=== PATIENT | female | born 1975 | race Asian ===

== ENCOUNTER 2022-04-06 10:27 | Day surgery (SDC) | payer OTHER, SELFPAY ==
[2022-04-06] MEDS: LACTATED RINGERS 1000 ML 1,000 ML 100 ML IV (10:10)
[2022-04-06 10:46] VITALS: BP 93/67; PULSE 64; RESP 16; TEMP 36.7; O2SAT 99; BMI 23.6
[2022-04-06] MEDS: SODIUM CHLORIDE 0.9 % (FLUSH) 10 ML SYRINGE IVF (10:54)
[2022-04-06 11:06] LABS: Ur HCG Qualitative* Negative (Negative)
--- NOTE | 2022-04-06 11:36 | P.PCN_ITS ---
Procedure Note Time Seen by Provider: 11:36 Date Seen: 04/06/22 Date of procedure: 04/06/22 Will [facility] bill your pro fee for this procedure?: Yes Procedure: Preoperative diagnosis: 46 year-old nulligravid woman with * 1. Suspected endometrial polyps on sonohysterogram. * 2. Breakthrough bleeding on oral contraceptive pills * 3. Diagnosed by her fertility specialist, planning IVF Postoperative diagnosis: Same Procedure: Hysteroscopy, Dilation and Curettage using the Truclear incisor Anesthesia: Conscious sedation, paracervical block. Surgeon: Becka Tamayo MD Leaf Conditioner Helper: None Estimated blood loss: 3 mL IV Fluid: 500 mL Specimen: Endometrial curettings to pathology. Findings: Exam under anesthesia: Uterus: Retroverted position, less than less than 8 week sized, mobile, with no masses or nodularity palpable. Uterus sounded to 8 cm. No adnexal masses or nodularity palpable. On hysteroscopy: Multiple polypoid masses within the endometrium. After the dilation and curettage the endometrium appeared normal. Procedure: Amy Schaefer was taken to the operating operating room more conscious sedation was found to be adequate. The patient was placed on in the dorsal lithotomy position and an exam under anesthesia was performed with findings stated above. She was then prepped and draped in a normal sterile manner. A bivalve speculum was placed in the vagina. The cervix appears nulliparous. Otherwise no abnormalities. The paracervical block was placed using 0.5% Marcaine, 10 mL was injected at the 4 and 8 o'clock positions on the cervix. The posterior lip of the cervix was grasped with a long Allis clamp. The cervix dilated to Hegar 6. The uterus sounded to 8 cm. The Truclear hysteroscope was advanced into the uterus. A diagnostic hysteroscopy was performed with normal saline as the insufflation medium. Findings are stated above. The Truclear incisor was then advanced through the camera. The curettage was performed with the incisor over an approximately 5 minutes. The incisor was then removed. The endometrial cavity appeared normal. Saline deficit at the end of the procedure 140 mL. Total saline used 1130 mL. Nothing was needed for hemostasis. The hysteroscope, Allis clamp and speculum were removed from the vaginal canal. The patient tolerated the procedure well. Sponge, lap and instrument counts were correct x2 at the end of the procedure. The patient was taken to the recovery area in stable condition. A copy of the patient's discharge summary will by sent to her primary care provider: JENNY Farrell and her paedodontist: Arlin Bullard MD Surgeon: Becka Tamayo MD
--- NOTE | 2022-04-06 11:46 | W.ANESCHARGE ---
Anesthesia Charges Start Date/Time Anesthesia Start Date: 04/06/22 Anesthesia Start Time: 11:38 Stop Date/Time Anesthesia Stop Date: 04/06/22 Anesthesia Stop Time: 12:20 Summary Emergency: No
[2022-04-06] MEDS: BUPIVACAINE 0.5% 30 ML INJECTION (11:57)
[2022-04-06 12:16] VITALS: BP 96/58; PULSE 65; RESP 16; TEMP 36.5; O2SAT 98
--- NOTE | 2022-04-06 12:20 | W.ANESCHARGE ---
Anesthesia Charges Start Date/Time Anesthesia Start Date: 04/06/22 Anesthesia Start Time: 11:38 Stop Date/Time Anesthesia Stop Date: 04/06/22 Anesthesia Stop Time: 12:20 Summary Emergency: No
[2022-04-06 12:30] VITALS: BP 95/59; PULSE 66; RESP 16; O2SAT 98
[2022-04-06 12:45] VITALS: BP 93/60; PULSE 65; RESP 16; O2SAT 98
[2022-04-06 13:00] VITALS: BP 92/59; PULSE 65; RESP 16; O2SAT 98
== END 2022-04-06 13:03 | disposition home or self-care (01) ==
PROVIDERS: PCP Physician Assistant Medical; Visit Provider Obstetrics & Gynecology
PROC: 0UDB8ZZ Extraction of Endometrium, Via Natural or Artificial Opening Endoscopic (ICD-10-PCS; CPT 58558; principal; 2022-04-06 11:45)
DX: N93.8 Other specified abnormal uterine and vaginal bleeding (principal); N84.0 Polyp of corpus uteri
CPT/HCPCS: 58558; 00952; 36415; 81025; 86850; 86900; 86901; 88305; J2250; J2405; J2704; J3010; J3490; J7120

== ENCOUNTER 2022-06-13 12:49 | Emergency (ER) | payer OTHER, SELFPAY ==
[2022-06-13 12:55] VITALS: BP 108/71; PULSE 64; RESP 18; TEMP 36.1; O2SAT 99; BMI 21.5
--- NOTE | 2022-06-13 13:17 | ED_ITS ---
HPI - General Adult General Chief complaint: Vaginal Bleeding Stated complaint: vaginal bleeding Time Seen by Provider: 06/13/22 12:54 Source: patient Mode of arrival: ambulatory Limitations: no limitations History of Present Illness HPI narrative: 46-year-old female coming in today concerned about vaginal bleeding that started this morning. Patient has been dealing with infertility and had an embryo transfer done at the end of May. Everything has been going well until today when she had a what she describes, as a large amount of vaginal bleeding. The bleeding has now essentially stops and she says that she is now only spotting. She also states that she did have some tissue expelled. She is otherwise feeling fine. She is requesting today to know for sure whether not she had a miscarriage. We discussed doing an ultrasound and doing a hCG quantitative level which patient felt was appropriate. Related Data Home Medications Medication Instructions Recorded Confirmed desogestrel 0.15 mg-ethinyl 1 tab PO QDAY 03/10/22 04/19/22 estradiol 0.03 mg tablet (Apri) Allergies Allergy/AdvReac Type Severity Reaction Status Date / Time No Known Drug Allergies Allergy Verified 04/19/22 08:50 Review of Systems Status of ROS: Reports: 10 or more systems reviewed and unremarkable except as noted in History and below [facility] Medical History Endometrial polyp ?N84.0 - Polyp of corpus uteri (ICD-10) Infertility Surgical History H/O wisdom tooth extraction ?K08.409 - Partial loss of teeth, unspecified cause, unspecified class (ICD- 10) Family History Father High blood pressure Stroke Social History Narrative: Cis-gender, heterosexual woman Relationship status: . 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 Smoking Status: Never smoker How often do you have a drink containing alcohol: never AUDIT-C Alcohol total score: 0 Non-prescribed substance use: denies use Caffeine: No Are you using contraception or practicing any form of control: No Exam Narrative: Exam Narrative: Well-nourished well-developed patient in no acute distress. Alert and oriented. Answers questions appropriately. Mood and affect are appropriate. Thoughts are goal oriented and rational. No tangential or magical thinking noted. Patient speaks in full sentences without needing to catch her breath. HEENT: Normocephalic atraumatic. Pupils are equally round reactive to light. Extraocular muscles are intact. Conjunctivae are moist without any icterus noted. No pallor noted. Cardiovascular: Heart is regular rate and rhythm S1 and S2 are present without any murmurs. Lungs: Clear to auscultation bilaterally no wheezes rhonchi or rales are appreciated. Patient takes deep breaths without any discomfort. Skin: Well perfused without any obvious rashes. Const: Vital Signs, click to edit/add: Vital Signs - 24 hr 06/13/22 12:55 Temperature 97.0 F L Pulse Rate [Right Pulse Oximeter] 64 Respiratory Rate 18 Blood Pressure [Ri ght Upper Arm] 108/71 Pulse Oximetry 99 Oxygen Delivery Me thod Room Air Course Course Hospital Course: Labs entered the room to draw her blood and patient requested to speak to me again. I return to the room where she told me that she did not want have any testing done today and she wanted to wait until she saw her fertility physician this coming week. Vital Signs Vital signs: Initial Vital Signs Temperature 97.0 F L 06/13/22 12:55 Temperature Source Temporal Artery Scan 06/13/22 12:55 Pulse Rate 64 06/13/22 12:55 Respiratory Rate 18 06/13/22 12:55 Blood Pressure 108/71 06/13/22 12:55 Blood Pressure Mean 83 06/13/22 12:55 Blood Pressure Position Sitting 06/13/22 12:55 Pulse Oximetry 99 06/13/22 12:55 Oxygen Delivery Method Room Air 06/13/22 12:55 Vital Signs Temperature 97.0 F L 06/13/22 12:55 Pulse Rate 64 06/13/22 12:55 Respiratory Rate 18 06/13/22 12:55 Blood Pressure 108/71 06/13/22 12:55 Pulse Oximetry 99 06/13/22 12:55 Oxygen Delivery Method Room Air 06/13/22 12:55 Temperature 97.0 F L 06/13/22 12:55 Pulse Rate 64 06/13/22 12:55 Respiratory Rate 18 06/13/22 12:55 Blood Pressure 108/71 06/13/22 12:55 Pulse Oximetry 99 06/13/22 12:55 Oxygen Delivery Method Room Air 06/13/22 12:55 Medical Decision Making MDM Narrative Medical decision making narrative: 46-year-old female with vaginal bleeding. Refusing any treatment or testing today. Nothing further will be done, patient discharged home in stable condition. Discharge Plan Discharge Clinical Impression: Vaginal bleeding Patient Disposition: Home, Self-Care Condition: Stable Prescriptions: No Action desogestrel-ethinyl estradiol [Apri] 0.15-0.03 mg tablet 1 tab PO QDAY Follow Up/Referrals: Greta Dunlap PA-C [Primary Care Provider] - Stand Alone Forms: [facility] Info Instructions
--- NOTE | 2022-06-13 13:25 | ED.NURSE ---
Went into room to assess patient and explain plan of care. When blood draw was mentioned she questioned if these were necessary. MD was called in to speak with patient and answer more questions.
== END 2022-06-13 13:48 | disposition home or self-care (01) ==
PROVIDERS: Emergency Provider Family Medicine; PCP Physician Assistant Medical
DX: N93.9 Abnormal uterine and vaginal bleeding, unspecified (principal)
CPT/HCPCS: 84702; 85018; 86900; 86901; 99282

== ENCOUNTER 2024-06-17 17:19 | Inpatient (IN) | payer OTHER, SELFPAY ==
[2024-06-17] VITALS (55 sets, daily range): BP systolic 57–163; BP diastolic 35–118; PULSE 82–146; RESP 14–16; TEMP 36.5–36.8; O2SAT 92–99; BMI 27.8
[2024-06-17] MEDS: LACTATED RINGERS 1000 ML 1,000 ML 1200 ML IV ×3 (17:53→20:10)
[2024-06-17 18:03] LABS: Hemoglobin* 14.2 gm/dL (12.0-16.0); Immature Granulocytes Pct Auto 0.8 %; Lymphocytes Percent Auto 4.6 % (20-44); Mean Corpuscular HGB Conc 35 gm/dL (32-36); Mean Corpuscular Hemoglobin 33 pg (26-34); Mean Corpuscular Volume 96 fL (80-100); Monocytes Percent Auto 5.5 % (0.0-11.0); Neutrophils Percent Auto 89.1 % (42.0-72.0); Platelet Count* 118 K/uL (140-440); RDW Coefficient of Variation % 13.2 % (11.5-15.5); Red Blood Count 4.27 m/uL (4.00-5.20); White Blood Count* 24.92 K/uL (4.50-11.00)
[2024-06-17 18:05] LABS: Slide Review Reflex No
--- NOTE | 2024-06-17 18:10 | P.OBHP_ITS ---
OB - H&P: HPI Labor/Induction History of Present Illness Date Seen: 06/17/24 Chief Complaint: Olive is a 48 year old 2 para 0 at 40.2 weeks gestation by IVF established GILDA, who presents with her home electromechanical assembler desiring pain management for labor with prolonged second stage at home. Chief complaint: Maternity : 2 Para: 0 Date of last menstrual period: 09/09/23 (GILDA by IVF transfer, LMP unknown) Estimated date of delivery: 06/15/24 Gestational age based on last menstrual period: 40 Narrative: Olive Leiva is a 48 year old female at 40.2 by IVF transfer dates. She was attempting a home and is here now desiring pain management with an epidural. She has been 10 cm since 2001 on 06/16/2024 according to the home electromechanical assembler who accompanied her to the hospital. Additionally she may have had SROM on 06/14/24 as transfer notes indicate some leaking of clear fluid on this date. Labor charting indicated SROM at 1237 on 06/16/24 with continued leaking noted. Records were requested from [facility] in [place] as pt reports an initial visit with them. Records show one visit with them and limited lab work done per patient request. She has not had an anatomy scan, 1 hour glucose testing or GBS screening this . She declines GBS treatment today and has signed a refusal form. Labs done with [facility] include: Hep B: neg Hep C: neg Treponema palladium: negative Rubella: immune NIPT: low risk, female Hgb: 12.0 Plt: 171 Pt declines all blood work other than a CBC and Blood typing today. Home electromechanical assembler reports she has been pushing off and on since 2001 on 06/16/24. Reports they have tried multiple position changes, water therapy. Gopi circuit, and coached pushing. On admission she does desire an epidural, reports she feels exhausted and dozes off during exam. History of Present Dating criteria: other care: good care Ultrasounds: none Review of Systems Status of ROS: Reports: 10 or more systems reviewed and unremarkable except as noted in History and below Const: Denies: fever or chills Meds Home Medications and Allergies Home Medication Comments: PNV, Vit D3, Allergies Allergy/AdvReac Type Severity Reaction Status Date / Time No Known Drug Allergies Allergy Verified 06/17/24 17:36 OB - H&P: Exam Physical Exam: Vital signs: Pulse BP Pulse Ox 93 110/70 97 06/17/24 17:24 06/17/24 17:24 06/17/24 17:24 Narrative: VSS? General Appearance:? Alert,?appropriate appearance?for age. No acute distress? HEENT Exam:? Grossly?normal.? Neck / Thyroid Exam:? Supple? Chest/Respiratory Exam: Normal respiratory effort, symmetrical chest wall rise. Clear to auscultation.? Cardiovascular Exam: Regular rate and rhythm. S1, S2, no murmur, click, gallop, or rubs.? Gastrointestinal Exam: non-tender,? Gravid??? Musculoskeletal Exam: Back is straight and non-tender, full ROM of upper and lower extremities.? Skin: no rash or abnormalities? Neurologic Exam: Normal gait and speech, no tremor.? Psychiatric Exam: Alert and oriented, appropriate affect.??? OB - Results Labs Labs: Short CBC 06/17/24 Range/Units 17:57 WBC 24.92 H (4.50-11.00) K/uL Hgb 14.2 (12.0-16.0) gm/dL Hct 41.0 (33.0-51.0) % Plt Count 118 L (140-440) K/uL OB - Problem Based A/P Additional Plan (1) 40 weeks gestation of : Status: Acute (2) Pain during labor: Status: Acute (3) Prolonged rupture of membranes: Status: Acute Delivery/Labor/Induction Plan Plan: other (Establish pain management then assess and make plan for care)
[2024-06-17] MEDS: LIDOCAINE 2% (PF) 5 ML VIAL EPIDURAL (19:04)
[2024-06-17] MEDS: ROPIVACAINE 0.2% 100 ml 100 ML 10 MG EPIDURAL (19:04)
--- NOTE | 2024-06-17 19:19 | P.ANBPRC_ITS ---
[facility] Medical History Uterine polyp ?N84.0 - Polyp of corpus uteri (ICD-10) Social History What is your current living situation?: I presently have a place to live Problems where you live: no known problems In the past 12 months, utilities in danger of being shut off: no In past 12 months, lack of transportation kept you from medical appts, meetings, work, or getting things needed for daily living: no In the past 12 mos, have been you worried that your food would run out before you had money to buy more?: never true In the past 12 mos, the food you bought just didn't last and you didn't have money to buy more?: never true Smoking Status: Never smoker How often does anyone, including family, friends and others, physically hurt you : never How often does anyone, including family, friends and others, insult or talk down to you: never How often does anyone, including family, friends and others, threaten you with harm: never How often does anyone, including family, friends and others, scream or curse at you: never Meds Home Medications and Allergies Allergies Allergy/AdvReac Type Severity Reaction Status Date / Time No Known Drug Allergies Allergy Verified 06/17/24 17:36 Results Labs Labs: Laboratory Results - last 24 hr 06/17/24 17:57 WBC 24.92 H RBC 4.27 Hgb 14.2 Hct 41.0 MCV 96 MCH 33 MCHC 35 RDW Coeff of Quentin 13.2 Plt Count 118 L Neut % (Auto) 89.1 H Lymph % (Auto) 4.6 L [place] % (Auto) 5.5 Eos % (Auto) 0.0 Baso % (Auto) 0.0 Neut # (Auto) 22.20 H Lymph # (Auto) 1.10 [place] # (Auto) 1.40 H Eos # (Auto) 0.00 Baso # (Auto) 0.00 Abs Immat Gran (auto) 0.20 Imm/Tot Granulo (auto) 0.8 Blood Type B Positive Antibody Screen NEGATIVE Vital Signs Vital Signs: Last Vital Signs Pulse 99 06/17/24 19:18 BP 111/65 06/17/24 19:18 Pulse Ox 96 04/13/25 19:15 Weight: 66.678 kg Height: 154.94 cm Anesthesia Procedures Epidural Insertion Patient Location: OB Start Time: 18:40 Stop Time: 19:40 Start Date: 06/17/24 Stop Date: 06/17/24 Reason for Block: procedure for pain Patient Position: sitting Performed By: Soraida Loera Preanesthetic Checklist: IV checked, risks and benefits discussed, monitors and equipment checked, pre-op evaluation, timeout performed and anesthesia consent Prep: chlorhexidine gluconate Monitoring: blood pressure monitoring, continuous pulse oximetry and heart rate Approach: midline Vertebral Space: lumbar (1-5) Epidural Technique: ALEXA saline Needle Type: Tuohy needle Injection Technique: continuous catheter (continuous catheter) Needle gauge: 17 Needle Length (cm): 10 cm Needle Insertion Depth (cm): 7 Catheter Gauge: 19 Catheter Type: multi-orifice Catheter at skin depth (cm): 15 Test Dose Result: negative and lidocaine 1.5% with epinephrine 1 to 200,000
[2024-06-17] MEDS: PHENYLEPHRINE 100 MCG/ML SYRINGE IVP ×3 (19:22→19:25)
[2024-06-17] MEDS: ePHEDrine sulfate 5 MG/ML inj 10 MG IVP (19:23)
[2024-06-17] MEDS: fentaNYL 100 MCG/2 ML inj EPIDURAL (19:44)
[2024-06-17] MEDS: OXYTOCIN 30 unit/500 ML in NS 30 UNIT/500 ML BAG IVPB (19:47)
--- NOTE | 2024-06-17 21:13 | P.OBPN_ITS ---
<Statement entered by Kaylynn Jorge CNM - 06/17/24 21:56> This documentation has been reviewed and approved. I, *Kaylynn Jorge APRN, [place], was present for visit and have reviewed and agree with documentation by the Certified Nurse Midwifery Student.? Subjective Date Seen: 06/17/24 Narrative: In to assess patient after epidural was set up and she was feeling relief. Discussed options for either to continue with attempt at vaginal delivery, or progress to C section. Reviewed the risks of rupture greater than 24 hours and attempt at home of second stage did not show progress, recommendation would be for C section. Patient declined C section and wanted information on other options. reviewed what continuing with vaginal delivery would entail. Educated on use of oxytocin to help contraction pattern and strength to be more efficient. Reviewed options of breast pump and nipple stimulation, although did not advise that at this point. Patient agrees to oxytocin and continuing into second stage. Began second stage with slight left tilt, also left knee up with right leg down, right left up with left leg up, closed knee pushing, hands and knees and left sided pushing. [place] patient was making good pushing efforts, although infant head present asynclitic, ROP, and pushing and positioning efforts are not allowing fetus to advance or make progress. Discussed with patient that options have been exhausted and the best plan for a safe delivery would be a C section. Patient is in agreement. OB to be consulted. Objective Exam: NEURO: alert, oriented, speech normal HEENT: Intact RESPIRATORY: Regular rate rhythm,negative for cough CARDIO: Intermittent tachycardia, extremities perfusing well ABDOMEN: gravid, slim CERVICAL CHECK: 10/100/0 FHR: 140, category I CONTRACTIONS: 4-8 min apart, moderate to strong Vital Signs: Last Vital Signs Temp 98.3 F 06/17/24 19:15 Pulse 106 H 06/17/24 21:10 Resp 16 06/17/24 18:32 BP 116/69 06/17/24 21:10 Pulse Ox 97 06/17/24 20:00 Pelvic Exam Dilation (cm): 10 Effacement (%): 100 Station: 0 Comments: ROP, asynclitic. Contractions Pitocin Rate (mU/min): 4 Assessment Assessment: active labor Station: 0 Amniotic Membrane Status: SROM Status: Category l Heart Rate Baseline: 140 Special Procedure Technologist Variability: Moderate (6-25) Monitor Accelerations: Present Monitor Decelerations: None Plan Plan: 48 yo @ 40 &2 active labor, pushing without progress, FHR remained category I, unknown GBS, patient declines treatment problems; IVF, limited testing, declined US, 1 hour GTT, GBS, HIV testing, had genetic testing done, prolonged ROM and prolonged second stage. Plan: Consulted with OB for C section, patient in agreement. Dr Marte updated
--- NOTE | 2024-06-17 21:53 | PM.OBCN1 ---
OB - CN: HPI Date of Consult Time Seen by Provider: 21:30 Date Seen: 06/17/24 Consult date: 06/17/24 Requesting Physician: Kaylynn Jorge CNM Primary Care Provider: Not a Local Provider Consult Narrative Narrative: The patient is a 48 year old G 2 P 0 at 40w2d gestation that was admitted to the Center on 06/17/24 to establish care. Intrapartum course complicated by prolonged 2nd stage of labor, where she has been reportedly complete and pushing intermittently since 1999 yesterday. is complicated by IVF gestation, limited care. She did have a confirmation of ultrasound in 1st OB visit with Jessica, after that time completed all of her care with her home equipment service technician. Limited records are available, please see Kaylynn Jorge's ([place]) note for complete details. Notably, patient did not have an anatomy ultrasound, gestational diabetes screening or GBS testing. Infectious testing at new OB was negative, though HIV status has never been checked. Patient notes onset of spontaneous labor yesterday morning. Her equipment service technician notes she presented to home about 9:00 a.m., they suspected SROM at about 1230. She did note some leaking as early as 06/14, but her equipment service technician notes it was nitrazine and ferning negative at that time. Cervical exam was performed at 1999 on 06/16, at which time the patient was found to be complete. She pushed intermittently thereafter. Presented to our facility at about 1800 requesting epidural and transfer of care. She received an epidural, where cervical exam was performed and she was confirmed to be complete and 0 station. Pitocin augmentation was initiated, but ultimately patient failed to make descent with another hour expulsive efforts. I was consulted by Kaylynn Jorge CNM at 2108 and presented to the bedside. I explained my recommendation is to proceed with primary delivery and proceed as indicated immediately. Explained that ACOG defines a prolonged 2nd stage of labor as greater than 3 hours in nulliparous patients. Beyond this, I counseled her that there is about a 4 fold increased risk of hemorrhage. I explained it is challenging to accurately predict her true risk, given the very prolonged nature of her 2nd stage is outside of that which would be anticipated to be in the previously mentioned literature. Additionally counseled her about the risk of chorioamnionitis and endometritis in the setting of a prolonged labor/2nd stage. As such, I strongly feel it is safer from both the maternal and perspective to proceed with primary . Explained she has exhausted all other alternatives. Counseled her on her significantly increased was hemorrhage, where I reviewed that I would recommend delayed cord clamping for only 30 seconds, active management of the 3rd stage with delivery of the placenta and IV Pitocin. Recommend empiric use of 1 g IV TXA help prevent PPH. Discussed uterotonics that could be utilized to assist with uterine atony, as well as compressive devices (Jennifer, Bakri) or surgical interventions such as B-[place], [place] sutures or peripartum hysterectomy as a life saving measure. Patient is previously typed and screen, recommend we cross match her for 2 units. Patient did provide verbal consent for transfusion of blood if medically indicated. She initially inquired where the blood come from, where I explained this is via the [place] and is screen for communicable disease (HIV, hepatitis, syphilis, etc.). Patient asked if it is screen for COVID status, which I explained it is not screened for COVID-19 antibody or virus. After counseling, patient does again provided verbal consent to transfusion if required. With regard infection, recommend we proceed with IV Ancef and azithromycin. Discussed risk of damage to surrounding structures including uterus, tubes, ovaries, bowel, bladder, blood vessels, baby. I further explained the risk of a deeply impacted head which could lead to difficulty with extraction, hypoxia, injury or extension of the hysterotomy. Finally, I did ask that she allow us to screen her for HIV as this has not been previously completed and is relevant to the surgical team in the event of a needlestick injury. She provides verbal consent, where HIV will be run on her previously collected specimen. After comprehensive discussion, patient read consent form and had the opportunity ask questions. Written consent for primary delivery and proceed as indicated was obtained. She did request a written copy. She requested her placenta be provided to her home equipment service technician. I explained that I would typically recommend we send this for pathologic evaluation in the setting of an unscheduled , IVF , abnormal labor course. Alternatively, I requested to visually inspect the placenta and send a small portion of the placenta itself, membranes and umbilical cord. Patient declined, she would prefer to have her placenta sent with her equipment service technician intact. Explained we will honor her wishes. Plan to complete pelvic exam in the operating room to de-station head. Kaylynn Jorge CNM will be present to aid as hand from below in the event of deeply impacted head. Active type and screen on file, currently crossmatching 2 units packed red blood cells. Plan perioperative Ancef and azithromycin. Pediatrics provider to attend delivery in the setting of unscheduled and limited care (no anatomy US). History History 2 Elective abortions Para 0 Spontaneous abortions Hx # Term Pregnancies Ectopic pregnancies Hx # Pregnancies Multiple births Number of Living Children 0 Past Pregnancies Del. Date GA/Weeks Outcome Route wt Inf Gender Labor Lgth Anesthesia Location Provider Compli 03/07/22 spontaneous Labs GBS status: unknown OB Labs: Lab Assessment Start: 06/17/24 17:17 Freq: ONCE Status: Complete Protocol: PC.OBGBS Activity Type Activity Date Activity User E-sign Co-sign Detail Recorded Client Recorded Date Recorded By Document 06/17/24 17:17 [place] No Response 06/17/24 20:04 [place] 06/17/24 17:17 Lab Assessment GBS Status unknown GBS Additional Criteria ROM Greater Than 18 Hours Is Patient Allergic to Penicillin? No Treatment Required OK Maternal Blood Type B Maternal RH Factor Positive Evaluate Maternal Rubella Immune Status Immune Hepatitis B Surface Antigen Negative Maternal HIV Status Unknown Maternal Syphillis (RPR) Status Negative [facility] Medical History Uterine polyp ?N84.0 - Polyp of corpus uteri (ICD-10) Social History What is your current living situation?: I presently have a place to live Problems where you live: no known problems In the past 12 months, utilities in danger of being shut off: no In past 12 months, lack of transportation kept you from medical appts, meetings, work, or getting things needed for daily living: no In the past 12 mos, have been you worried that your food would run out before you had money to buy more?: never true In the past 12 mos, the food you bought just didn't last and you didn't have money to buy more?: never true Smoking Status: Never smoker How often does anyone, including family, friends and others, physically hurt you: never How often does anyone, including family, friends and others, insult or talk down to you: never How often does anyone, including family, friends and others, threaten you with harm: never How often does anyone, including family, friends and others, scream or curse at you: never Meds Home Medications and Allergies Home Medications ?Medication ?Instructions ?Recorded ?Confirmed ?Type vit no.95-ferrous 1 tab PO DAILY 06/17/24 06/17/24 History fumarate 28 mg-folic acid 800 mcg tablet () Allergies Allergy/AdvReac Type Severity Reaction Status Date / Time No Known Drug Allergies Allergy Verified 06/17/24 17:36 OB - H&P: Exam Physical Exam: Vital signs: Temp Pulse Resp BP Pulse Ox 98.3 F 115 H 16 98/53 L 97 06/17/24 19:15 06/17/24 21:38 06/17/24 18:32 06/17/24 21:38 06/17/24 20:00 OB - Results Labs Labs: Short CBC 06/17/24 Range/Units 17:57 WBC 24.92 H (4.50-11.00) K/uL Hgb 14.2 (12.0-16.0) gm/dL Hct 41.0 (33.0-51.0) % Plt Count 118 L (140-440) K/uL OB - CN: A/P Assessment and Plan (1) 40 weeks gestation of : Status: Acute (2) Pain during labor: Status: Acute (3) Prolonged rupture of membranes: Status: Acute (4) Advanced maternal age (AMA), 40 years or greater: Status: Acute
[2024-06-17] MEDS: AZITHROMYCIN 500 MG in 0.9 % SODIUM CHLORIDE 250 ml 250 ML 255 MG IVPB (22:02)
[2024-06-17] MEDS: CEFAZOLIN 1 GM inj 2 GM IVP (22:18)
--- NOTE | 2024-06-17 22:40 | SUR.OPER ---
PATIENT BROUGHT TO OR #5 PER CART. Patient positioned supine on OR #5 bed. Final approval of positioning by surgeon. PLACENTA IS NOT SENT TO PATHOLOGY PER PATIENT REQUEST.
[2024-06-17] MEDS: KETOROLAC 30 MG/ML inj IVP (23:08)
--- NOTE | 2024-06-17 23:21 | P.OBPRC_ITS ---
Procedure Time Seen by Provider: 23:21 Date of procedure: 06/17/24 Pre-op diagnosis: Arrest of descent, prolonged second stage of labor (24 hours), prolonged labor course, AMA, IVF, limited care Post-op diagnosis: same Procedure Done: Global Will [facility] bill your pro fee for this procedure?: Yes Blood Loss Measurement Type: QBL (344) Bakri Used: No IV fluids (mL): 1,000 Urine Output (mL): 200 Urine Output Comment: [place] color noted pre-op with placement of nelson, unchanged at completion of case Surgeon: Jersey Marte MD Anesthesia Type: Epidural Findings: Liveborn female Unremarkable uterus, fallopian tubes and ovaries Procedure Name: Primary delivery Procedure Description: Patient was taken to the operating room with IV running. She received cefazolin and azithromycin in preoperative prophylaxis. Epidural anesthesia was previously administered and bolused. Nelson catheter was previously inserted, return of hanccok colored urine noted. She was prepped and draped in the usual sterile fashion. Anesthesia was tested and found to be adequate. A low-transverse skin incision was made with a scalpel and carried through to the underlying layer of fascia with the scalpel. The subcutaneous fat was dissected off the underlying fascia with Bovie and blunt dissection. The fascia was nicked in the midline with a scalpel, and this incision was extended laterally with scissors. The rectus muscles were in the midline. Peritoneum was identified and entered bluntly. Bovie was used to widen this opening laterally. Joseph O retractor was inserted and tightened down, providing excellent visualization of the lower uterine segment. The bladder reflection was advanced along the lower uterine segment. A bladder flap was created with a combination of sharp and blunt dissection. Low-transverse uterine incision was made with a scalpel. Incision was widened bluntly. Foster and somewhat opaque amniotic fluid noted. The infant's head was grasped through the hysterotomy in MAGALI position with asynclitism and elevated to the hysterotomy. The shoulders were broad and did not immediately deliver with fundal pressure, where the right extremity was swept across the chest and over the face atraumatically to facilitate delivery. The remainder of the body then delivered without incident with the help of fundal pressure. No nuchal cord was noted. Cord was clamped and cut after 30 seconds. Infant was handed off to attending nurses and Pediatrics provider. The placenta was delivered with gentle traction on the cord. The uterus was cleaned of all clots and debris with the dry lap pad x2. IV pitocin (40U in LR) and 1g IV TXA was administered as prophylaxis given her prolonged second stage. The uterus was repaired in situ due to large size. The hysterotomy was reapproximated with 0 Vicryl in a running, locked fashion. Second layer of the same suture was used in imbricating fashion to obtain hemostasis. Excellent uterine tone was noted throughout. An area of ongoing oozing was noted at the center of the hysterotomy, reinforced with a [id number] suture with 0 vicryl. Excellent hemostasis noted. The adnexa were examined and noted to be normal in appearance. The cul-de-sac and gutters were cleansed with dampened laparotomy sponge, removing any further clots and debris. The Joseph O retractor was removed. The hysterotomy was reexamined and found to be hemostatic. The rectus muscles were examined and found to be hemostatic. The fascia was reapproximated with 0 Vicryl in a running fashion. Subcutaneous fat was irrigated and Bovie used on oozing vessels. The subcutaneous fat was less than 2cm and did not require closure. The skin was closed with a subcuticular stitch of 3-0 monocryl. Surgical glue was applied above this. Patient tolerated procedure well was taken to recovery area in stable condition. Surgical debrief was completed. Placenta was inspected, noted to be intact on visual inspection. Scattered areas of calcification seen. Central cord insertion, three-vessel cord. Membranes were somewhat tanned stained. Placenta was provided to patient at her request, declined surgical pathology. details: - Liveborn female fetus - weight: pending at time of documentation - APGARs were 8 and 9 at 1 and 5 minutes respectively Complications: None Pathology: specimen obtained, sent to pathology [place] Infant total score - 1 minute: 8 total score - 5 minute: 9
--- NOTE | 2024-06-17 23:42 | P.ANES_ITS ---
Anesthesia Charges Start Date/Time Anesthesia Start Date: 06/17/24 Anesthesia Start Time: 22:07 Stop Date/Time Anesthesia Stop Date: 06/17/24 Anesthesia Stop Time: 23:26 Coding CPT Codes CPT Codes: ANES/ANALG CS DELIVER ADD-ON - 59875 ([id number]) P3 - PATIENT W/SEVERE SYS DISEASE, QZ - DIRECTOR ADULT SVC W/O TITLE CLOSER BY
--- NOTE | 2024-06-17 23:42 | W.ANESCHARGE ---
Anesthesia Charges Start Date/Time Anesthesia Start Date: 06/17/24 Anesthesia Start Time: 22:07 Stop Date/Time Anesthesia Stop Date: 06/17/24 Anesthesia Stop Time: 23:26 Coding CPT Codes CPT Codes: ANES/ANALG CS DELIVER ADD-ON - 45413 ([id number]) P3 - PATIENT W/SEVERE SYS DISEASE, QZ - SKIP PITMAN SVC W/O MACHINE STEAK TENDERIZER BY
--- NOTE | 2024-06-17 23:43 | P.NB_ITS ---
Nerve Block Nerve Block Time Seen by Provider: 23:10 Date Seen: 06/17/24 Type of block requested by surgeon for post-operative analgesia: TAP Side: bilateral Time out performed: Yes Verification of patient name: Yes Verification of date of : Yes Name of person performing procedure: CORAZON Loera Continuous monitoring Was continuous monitoring of O2 sat, B/P, alarm security or surveillance monitor, recorded every 15 minutes?: Yes Procedure Checklist: sterile prep, needles and gloves Ultrasound guided. Images saved: Yes Medications given in 5ml increments after negative aspiration: Marcaine %: 0.25 mL: 30 Needle gauge: 20 and Exparel mL: 10 Needle gauge: 20 Patient tolerated procedure well: Yes Block Charges Block Charge (with Pro Fee): TAP Bilateral Use of Ultrasound Machine for Block: Yes- US Guidance/pain block
[2024-06-18] VITALS (12 sets, daily range): BP systolic 87–101; BP diastolic 50–70; PULSE 74–92; RESP 12–16; TEMP 36.3–36.7; O2SAT 92–97
[2024-06-18] MEDS: LACTATED RINGERS 1000 ML 1,000 ML 1200 ML IV (00:06)
[2024-06-18 01:19] LABS: HIV 1/2/P24 Combo Screen* Negative (Negative)
[2024-06-18 04:04] LABS: Basophils Percent Auto 0.1 % (0.0-3.0); Hematocrit 32.9 % (33.0-51.0); Hemoglobin* 11.1 gm/dL (12.0-16.0); Immature Granulocytes Pct Auto 0.2 %; Lymphocytes Percent Auto 6.4 % (20-44); Mean Corpuscular HGB Conc 34 gm/dL (32-36); Mean Corpuscular Hemoglobin 33 pg (26-34); Mean Corpuscular Volume 98 fL (80-100); Monocytes Percent Auto 6.1 % (0.0-11.0); Neutrophils Percent Auto 87.2 % (42.0-72.0); Platelet Count* 95 K/uL (140-440); RDW Coefficient of Variation % 13.2 % (11.5-15.5); Red Blood Count 3.37 m/uL (4.00-5.20); White Blood Count* 12.72 K/uL (4.50-11.00)
[2024-06-18 04:07] LABS: Slide Review Reflex No
[2024-06-18 04:19] LABS: Creatinine* 0.8 mg/dL (0.5-1.5); Estimated Glomerular Filt Rate 91 ml/min
[2024-06-18] MEDS: KETOROLAC 30 MG/ML inj IVP ×4 (05:31→23:27)
[2024-06-18] MEDS: LACTATED RINGERS 1000 ML 1,000 ML 25 ML IV (07:15)
--- NOTE | 2024-06-18 08:41 | P.OBPN_ITS ---
OB - PN:Subj Subjective Date Seen: 06/18/24 Narrative: Amy Schaefer is a 48 y.o. G 2 P 1 who was admitted to [facility] for prolonged 2nd stage, complete over 20 hours and ROM over 48 hours suspected. She had a section that was uncomplicated. The patient feels well. ?The pain is well controlled with current medications. ?She has no new complaints. ?She is breast feeding and reports things are going well. the patient has done well.? Vitals have been stable.?Of note, in records from home irrigation pump installer, her last two visits had diastolic of 90. If she has any elevated BP , she would meet criteria for GHTN. She has had normotensive blood pressures since arrival. She has remained afebrile.? Has a good appetite, is tolerating a general diet. ?She has a catheter in place, to be removed this morning after she has ambulated.? She is passing gas and has not had a bowel movement.? She is ambulating and denies any dizziness.? Has small amount of rubra lochia. Patient was seeing a home irrigation pump installer for care. When asked patient about this irrigation pump installer, she reports she was told about this irrigation pump installer from a friend and was told by the irrigation pump installer she was unlicensed. The irrigation pump installer reported she was [employer] certified but I am unable to find her on the registry. Problems: none OB - PN: Obj Exam Physical Exam: Vital signs: Temp Pulse Resp BP Pulse Ox O2 Del Method 98.1 F 87 16 101/70 97 Room Air 06/18/24 06:29 06/18/24 06:29 06/18/24 06:29 06/18/24 06:29 06/18/24 06:29 06/18/24 06:29 Narrative: GENERAL APPEARANCE:? normal affect, alert, no distress MOOD:? appropriate CHEST:? clear to auscultation HEART:? regular rate and rhythm ABDOMEN:? soft, non-tender the uterine fundus is At Umbilicus, Midline and is appropriate for the stage of recovery. EXTREMITIES:? normal and no edema INCISION: Dressing in place; clean, dry, and intact OB - PN: Obj Data Labs Labs: Laboratory Results - last 24 hr 06/17/24 06/17/24 06/18/24 17:57 Unknown 04:00 WBC 24.92 H 12.72 H RBC 4.27 3.37 L Hgb 14.2 11.1 L Hct 41.0 32.9 L MCV 96 98 MCH 33 33 MCHC 35 34 RDW Coeff of Quentin 13.2 13.2 Plt Count 118 L 95 L Neut % (Auto) 89.1 H 87.2 H Lymph % (Auto) 4.6 L 6.4 L [place] % (Auto) 5.5 6.1 Eos % (Auto) 0.0 0.0 Baso % (Auto) 0.0 0.1 Neut # (Auto) 22.20 H 11.10 H Lymph # (Auto) 1.10 0.80 L [place] # (Auto) 1.40 H 0.80 Eos # (Auto) 0.00 0.00 Baso # (Auto) 0.00 0.00 Abs Immat Gran (auto) 0.20 0.00 Imm/Tot Granulo (auto) 0.8 0.2 Creatinine 0.8 Estimated Creat Clear 65.60 Estimated GFR 91 HIV 1&2 Ab/P24 Ag 4thGn Negative Blood Type B Positive Antibody Screen NEGATIVE Crossmatch (AHG) See Detail OB - PN: A/P Delivery Assessment and Plan (1) care and examination immediately after delivery: Status: Acute (2) Lactating mother: Status: Acute (3) Labor with prolonged second stage, delivered: Status: Acute Plan day: 1 Plan: routine care Comments: Routine post-op care , may see if needed? Hgb 11.1. ? Elevated BP noted on outside transfer records but normotensive PP. Will continue to monitor BP. Anticipate discharge tomorrow or Tuesday.
[2024-06-18] MEDS: MAG HYDROX/ALUMINUM HYD/SIMETH 30 ML ORAL.SUSP PO (12:56)
[2024-06-18 16:32] LABS: Platelet Count* 114 K/uL (140-440)
[2024-06-19 00:28] VITALS: BP 115/65; PULSE 79; RESP 16; TEMP 36.5; O2SAT 94
[2024-06-19] MEDS: KETOROLAC 30 MG/ML inj IVP (05:50)
--- NOTE | 2024-06-19 07:36 | P.DS_ITS ---
DS: Providers Provider Date Seen: 06/19/24 Date of admission: 06/17/24 17:19 Primary care physician: Not a Local Provider Admitting Clinician: Kaylynn Jorge CNM Consults: 06/17/24 21:54 Consult to Physician [CONS] Routine Comment: Consulting Provider: Alana Marte Has provider been notified: Yes Attending Physician on discharge: Kaylynn Jorge CNM DS: Diagnosis Discharge Diagnosis (1) Lactating mother: Status: Acute (2) care and examination immediately after delivery: Status: Acute (3) care following delivery: Status: Acute Exam Narrative: Exam Narrative: GENERAL APPEARANCE:? normal affect, alert, no distress? MOOD:? appropriate? CHEST:? clear to auscultation and percussion? HEART:? regular rate and rhythm? ABDOMEN:? soft, non-tender the uterine fundus is U/2 and is appropriate for the stage of recovery. Incision well approximated without drainage, redness or edema.? EXTREMITIES:? normal and no edema? Const: Vital Signs, click to edit/add: Vital Signs - 24 hr 06/18/24 08:00 06/18/24 12:10 06/18/24 15:30 Temperature 97.8 F 97.7 F 97.8 F Pulse Rate [Pulse Oximeter] 78 78 77 Respiratory Rate 12 12 16 Blood Pressure [Ri ght Arm] 92/55 L 90/50 L 91/54 L Pulse Oximetry 97 95 95 Oxygen Delivery Me thod Room Air Room Air Room Air 06/18/24 20:28 06/19/24 00:28 Temperature 97.4 F L 97.7 F Pulse Rate [Pulse Oximeter] 74 79 Respiratory Rate 16 16 Blood Pressure [Ri ght Arm] 87/57 L 115/65 Pulse Oximetry 95 94 Oxygen Delivery Me thod Room Air Room Air Documenting provider has reviewed patient's vital signs: yes OB - DS: Summary Hospital Course Hospital Course: The patient is a 48 year old G 2 P 1 at 40.2 weeks gestation that was admitted to the Center on 06/17/24 for initially for pain management with prolonged labor and second stage of labor with prolonged ROM. She had an uncomplicated delivery for prolonged ROM and failure in second stage of labor. She delivered a viable female infant. She is breast feeding and is feeling exhausted from cluster feeding last night. She did supplement with formula over night. Encouraged consultation today and to ask for help/support as needed. the patient has done well. Her pain is well controlled with current medications.? She has no new complaints.? Urinary output is adequate and she is voiding without difficulty.? Has a good appetite, is tolerating a general diet, is passing flatus, and has had a bowel movement.? Has scant amount of rubra lochia.? She is ambulating well and states that she is feeling better today. She was initially panning to discharge today but after discussion she is unsure. 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 Will plan to continue with discharge planning/orders, but she can stay if she desires. We discussed in depth contraception after IVF and the recommendation for 1 year from delivery to conception to consider a TOLAC next . They are unsure if/what they will do for contraception. Peripartum Data delivery method: Primary C/S; Labored Procedures: Procedures Operation Date: 06/17/24 22:45 Actual Procedure Side Surgeon p Section Alana Marte MD complications: none [place] Gender: Female Infant Discharge Plan: Home Status at Discharge Functional status at discharge: independent ambulation Overall status at discharge: patient is progressing back to baseline Time Spent with Patient Time attestation: Total time spent providing and/or coordinating discharge services: Discharge Plan Discharge Disposition: Home, Self-Care Date of Admission: 06/17/24 17:19 Attending Provider on Discharge: Tabitha Campos Consulting Providers: Alana Marte Primary Care Provider: Provider,Not a Local Condition: Stable Anticipated Discharge Date/Time: 06/19/24 12:00 Discharge Medications: New docusate sodium 100 mg Capsule 100 mg PO DAILY Qty: 100 0RF Rx Instructions: Take 1-2 tablets daily as needed for constipation. ibuprofen 600 mg Tablet 600 mg PO Q6H PRN (Reason: Pain) Qty: 90 0RF oxycodone 5 mg Tablet 5 - 10 mg PO Q4H PRN (Reason: Pain) Qty: 5 0RF Continued PNV cmb#95-ferrous fumarate-FA [] 28 mg iron- 800 mcg tablet 1 tab PO DAILY Discontinued desogestrel-ethinyl estradiol [Apri] 0.15-0.03 mg tablet 1 tab PO QDAY Discharge Orders: Discharge Order (Routine); Ordered 06/19/24 Ordered By: Tabitha Campos Patient Education: OB /Breast Feeding Additional Instructions: Discharge instructions were reviewed with the patient including signs and symptoms of infection and home going medications? ?? Activity restrictions:? Lifting Restrictions: 20 pounds for 6 weeks? No high-impact or core exercises for 6 weeks.?? No not submerge incision under water X 2 weeks?? Nothing vaginally for 6 weeks: no tampons or intercourse? Do not drive while taking narcotic pain medication(s)? Off Work or School for 8 weeks? ?? Symptoms to report to doctor:? -Bleeding that saturates more than one pad per hour? -Passing clots larger than the size of a golf ball? -Pain not relieved by prescribed medication? -Fever above 100.4 degrees Fahrenheit? -A foul vaginal odor? -Difficulty in emotions, mood and functions? -Thoughts of hurting yourself and/or ? -Painful, reddened area in your breast? -Any drainage, redness or tenderness in your IV/epidural site? -Severe headache that doesn't improve after taking medications? -Changes in vision, including temporary loss of vision, blurred vision, and/or light sensitivity? -Upper abdominal pain (usually under ribs on the right side)? -Decrease in urination or painful, frequent urinating? -Chest pain? -Shortness of breath? -Tenderness or pain with redness and/swelling in the calf(s) of your leg? Follow up visits:?? 1. 1 week visit:? incision check.? 2. 2-week visit: discuss feeding/care concerns, review control options and screen for anxiety/depression.? 3. 6-week visit for an annual exam.? ?? consultation services are available to all mothers and babies for the first year after delivery.? To make an appointment, please call [phone].? Discharge Diet: Regular Follow Up Appointments: [facility] [Provider Group] Provider,Not a Local [Primary Care Provider] - Forms: 51[employer] Info Instructions
[2024-06-19 07:46] VITALS: BP 103/63; PULSE 77; RESP 12; TEMP 36.9; O2SAT 97
[2024-06-19 12:15] VITALS: BP 117/71; PULSE 79; RESP 12; TEMP 36.6; O2SAT 95
[2024-06-19] MEDS: ACETAMINOPHEN 500 MG TABLET 1000 MG PO (12:23)
[2024-06-21 03:50] LABS: Rapid Plasma Reagin (RPR) Non Reactive (Non Reactive)
== END 2024-06-19 18:20 | disposition home or self-care (01) | DRG 788 ==
LOC: OB OUT 17:19 → OB 17:19
PROVIDERS: Nurse Anesthetist, Certified Registered; Obstetrics & Gynecology; Admitting Provider Advanced Practice Midwife; Visit Provider Advanced Practice Midwife
PROC: 10D00Z1 Extraction of Products of Conception, Low, Open Approach (ICD-10-PCS; CPT 59514; principal; 2024-06-17 22:30)
DX: O42.12 Full-term premature rupture of membranes, onset of labor more than 24 hours following rupture (principal); O32.4XX0 Maternal care for high head at term, not applicable or unspecified; O63.1 Prolonged second stage (of labor); G89.18 Other acute postprocedural pain; Z3A.40 40 weeks gestation of pregnancy; Z37.0 Single live birth
CPT/HCPCS: 01967; 01968; 36415; 64488; 76942; 82565; 85018; 85025; 85049; 86592; 86703; 86850; 86900; 86901; 86922; 94761; A9270; J0456; J0665; J0666; J0690; J1885; J2590; J2795; J3010; J7050; J7120

== ENCOUNTER 2024-07-23 15:18 | Outpatient (CLI) | payer OTHER, SELFPAY ==
--- NOTE | 2024-07-23 17:13 | P.LACCB_ITS ---
Consult Note - Mom Date of Visit Date of visit: 07/23/24 Reason for consultation: Other (questions about pumping, selecting pump, pump routine when return to work) Visit Code: Visit Patient's Information Phone number: [phone] : 2 Para: 1 Allergies No Known Drug Allergies Allergy (Verified 07/03/24 10:59) Mother's medical history: Difficulty conceiving Mother's Medical History: Medical History (Updated 06/27/24 @ 00:01 by Background Daiz[place]) Labor with prolonged second stage, delivered ?O63.1 - Prolonged second stage (of labor) (ICD-10) Advanced maternal age (AMA), 40 years or greater Prolonged rupture of membranes ?O42.90 - Premature rupture of membranes, unspecified as to length of time between rupture and onset of labor, unspecified weeks of gestation (ICD-10) Endometrial polyp ?N84.0 - Polyp of corpus uteri (ICD-10) Infertility Uterine polyp ?N84.0 - Polyp of corpus uteri (ICD-10) Work Plans: returns to work 09/10/24 Delivery Information Delivery type: Primary C/S; Labored Gestational Age: 40+2 Gestational Weight For Age: AGA Weight: 3.744 kg Baby's Information Baby's Age at Visit: 5 weeks Baby's Provider or Clinic: 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 Jaundice: No Past Experience Past Experience: No Current Frequency of Day Feedings: every 3 hrs or so, cluster feeds at night Frequency of Night Feedings: every 3-4 hrs in the night Both Breasts: Yes (sometimes, both offered) Suck: strong Latch: comfortable Length of Time: 15-20 min a side Goals: 1 year Pumping Pumping: Yes Quantity Pumped: using a haakaa for milk collecting; 10-15ml and stops Supplementing EBM Supplement: No (no bottles yet) Formula Supplement: No Baby Elimination Number of Wet Diapers a Day: ea feeding Number of BM a Day: 5-6/day, yellow, pasty Breast/Nipple Condition Breast Information: Breasts are symmetrical with rounded lower quadrants, intramammary distance is less than 1.5 inches. No erythema. Nipples are supple, everted prior to feeding. 2 papules, one on each nipple, white in color, 2mm in diameter, get larger with nursing and are slightly painful Mom noticed them 2 days ago Breast Shape: Round Engorgement: No Maternal Nipple Condition - Left: Common Nipple Maternal Nipple Condition - Right: Common Nipple Sore Nipples: No Baby Assessment Skin: Normal Tongue/frenulum: Normal/elastic Palate: Average Lips: Relaxed and Symmetrical Jaw Alignment: Symmetrical Mucosa: [place], moist Onsite Observation Post-Feed weight: 4.677 kg Position: Cross cradle Attachment/latch-on achieved: Easily Suck pattern: Suck burst and normal rest Swallow: Audible, consistent Behavior following feed: Alert, content Post-Nursing Left Nipple: Within Normal Limits Post-Nursing Right Nipple: Within Normal Limits Assessments/Interventions Assessments/Interventions: Answered questions about milk blister/milk blebs Handout given for treatment of them Return to office if worsening or increased pain Discussed pump options for mom when she returns to work Measured for flange size: nipples are 21mm; flange size 23-25mm recommended Reviewed what a pumping schedule would look like knowing it may shift as she gets closer to returning to work and dependent on baby's feeding routine at that time [place] currently trying to use a [employer]inoh hand pump and having a difficult time with the flange; troubleshooting discussed for positioning Baby is 5 weeks old and has yet to take a bottle; mom states baby will need to take a bottle when mom returns to work Discussed adding in a bottle feeding once a day to help baby get accustomed to this type of feeding Bottle options discussed along with paced bottle feeding Education provided: Supply/demand nature of milk supply, Sore nipple treatment options (milk blister handout given for treatment), Pumping for milk management and Milk collection, storage Follow-Up Suggested follow up: Appointment as needed Time Spent Time spent with patient (min): 80 Meds Home Medications and Allergies Home Medications ?Medication ?Instructions ?Recorded ?Confirmed ?Type vit no.95-ferrous 1 tab PO DAILY 06/17/24 07/03/24 History fumarate 28 mg-folic acid 800 mcg tablet () Allergies Allergy/AdvReac Type Severity Reaction Status Date / Time No Known Drug Allergies Allergy Verified 07/03/24 10:59
== END 2024-07-23 15:19 | disposition home or self-care (01) ==
LOC: OB LAC 15:20
PROVIDERS: PCP Physician Assistant Medical; Visit Provider Obstetrics & Gynecology
DX: Z39.1 Encounter for care and examination of lactating mother (principal)
CPT/HCPCS: G0463